=== PATIENT | male | born 1960 | race Caucasian/White ===

== ENCOUNTER 2020-03-05 12:00 | Emergency (ER) | payer BC ==
--- NOTE | 2020-03-05 12:10 | EDM.PDOC ---
ED HPI GENERAL MEDICAL PROBLEM - General Stated Complaint: PAIN IN L/ SHOULDER Time Seen by Provider: 03/05/20 12:05 Source of Information: Reports: Patient History Limitations: Reports: No Limitations - History of Present Illness INITIAL COMMENTS - FREE TEXT/NARRATIVE: HISTORY AND PHYSICAL: History of present illness: Patient is a 59-year-old male who presents to the ED today with concern of left-sided neck/shoulder pain that has been ongoing consistently for 2 to 3 weeks. Patient states that the pain is worse with moving his neck and better with rest. Patient states he does have improvement of his symptoms when he uses a heat pack and massage of the area but was concerned because he has a family history of blood clots and was told that the symptoms could be caused from a blood clot or a heart concern. Patient states that his symptoms have not worsened over the course of 2 weeks and has been constant and has slightly improved with time. Patient denies any trauma or injury. Denies any other symptoms or concerns. Patient denies fever, chills, chest pain, shortness of breath, or cough. Denies headache, neck stiff ness, change in vision, syncope, or near syncope. Denies nausea, vomiting, abdominal pain, diarrhea, constipation, or dysuria. Has not noted any blood in urine or stool. Patient has been eating and drinking appropriately. Review of systems: As per history of present illness and below otherwise all systems reviewed and negative. Past medical history: As per history of present illness and as reviewed below otherwise noncontributory. Surgical history: As per history of present illness and as reviewed below otherwise noncontributory. Social history: See social history for further information Family history: As per history of present illness and as reviewed below otherwise noncontributory. Physical exam: General: Patient is alert, oriented, and in no acute distress. Patient sitting comfortably on exam table. HEENT: Atraumatic, normocephalic, pupils equal and reactive bilaterally, negative for conjunctival pallor or scleral icterus, mucous membranes moist, TMs normal bilaterally, throat clear, neck supple, nontender, trachea midline. No drooling or trismus noted. No meningeal signs. No hot potato voice noted. Lungs: Clear to auscultation, breath sounds equal bilaterally, chest nontender. Heart: S1S2, regular rate and rhythm without overt murmur Abdomen: Soft, nondistended, nontender. Negative for masses or hepatosplenomegaly. Negative for costovertebral tenderness. Pelvis: Stable nontender. Genitourinary: Deferred. Rectal: Deferred. Skin: Intact, warm, dry. No lesions or rashes noted. Extremities: Deformity of the complete spine. No step-offs, crepitus, or point tenderness to palpation of the complete spine. Patient does have pain of the left sided trapezius muscle with palpation of the base of the muscle body as well with ROM of the cervical spine with reproducible pain of this area. Otherwise, atraumatic, negative for cords or calf pain. Neurovascular unremarkable. Neuro: Awake, alert, oriented. Cranial nerves II through XII unremarkable. Cerebellum unremarkable. Motor and sensory unremarkable throughout. Exam nonfocal. Notes: See Dr. Jaime dictation for EKG interpretation Signs and symptoms are prompt return to the ED thoroughly discussed with patient. Discussed importance for follow-up with a primary care provider. Voices understanding and is agreeable to plan of care. Denies any further questions or concerns at this time. Diagnostics: EKG, CBC, CMP, CXR, Trop, Ddimer Therapeutics: None Prescription: Diclofenac, Flexeril Impression: Left sided trapezius strain Plan: 1. Tylenol as needed for back pain. Otherwise, take the prescribed Flexeril and diclofenac as directed. Diclofenac as an anti-inflammatory medication so do not take any additional NSAIDs with this medication, such as naproxen, ibuprofen, or Aleve. Flexeril, this medication may cause drowsiness, so do not take it while driving or needing to be functioning outside of the home. 2. Follow-up with your primary care provider as discussed. Return to the ED as needed and as discussed. Definitive disposition and diagnosis as appropriate pending reevaluation and review of above. Left Shoulder Pain Score (Numeric/FACES): 9 - Related Data Allergies Allergy/AdvReac Type Severity Reaction Status Date / Time No Known Allergies Allergy Verified 03/05/20 12:18 Home Meds: Home Meds Cyclobenzaprine [Flexeril] 10 mg PO TID PRN #9 tab 03/05/20 [Rx] Diclofenac Sodium [Voltaren] 75 mg PO BIDMEALS PRN #15 tab.cr 03/05/20 [Rx] ED ROS GENERAL - Review of Systems Review Of Systems: Comprehensive ROS is negative, except as noted in HPI. ED EXAM, GENERAL - Physical Exam Exam: See Below (see dictation) Course - Vital Signs Last Recorded V/S: Last Vital Signs Temp 98.7 F 03/05/20 12:19 Pulse 86 03/05/20 12:19 Resp 20 03/05/20 12:19 BP 154/99 H 03/05/20 12:19 Pulse Ox 97 03/05/20 12:19 - Orders/Labs/Meds Orders: Active Orders 24 hr Category Date Time Status Cardiac Monitoring [RC] . DIRECTED Care 03/05/20 12:46 Active EKG Documentation Completion [RC] STAT Care 03/05/20 12:31 Active UA RFX JALIL AND CULT IF INDIC [URIN] Stat Lab 03/05/20 12:46 Ordered Labs: Laboratory Tests 03/05/20 03/05/20 03/05/20 Range/Units 13:22 13:22 13:22 WBC 4.12 (4.0-11.0) K/uL RBC 4.61 (4.50-5.90) M/uL Hgb 14.7 (13.0-17.0) g/dL Hct 44.0 (38.0-50.0) % MCV 95.4 (80.0-98.0) fL MCH 31.9 (27.0-32.0) pg MCHC 33.4 (31.0-37.0) g/dL RDW Std Deviation 44.4 (28.0-62.0) fl RDW Coeff of Rohan 13 (11.0-15.0) % Plt Count 153 (150-400) K/uL MPV 9.40 (7.40-12.00) fL Neut % (Auto) 62.4 (48.0-80.0) % Lymph % (Auto) 23.1 (16.0-40.0) % Ellsworth % (Auto) 14.1 (0.0-15.0) % Eos % (Auto) 0.2 (0.0-7.0) % Baso % (Auto) 0.2 (0.0-1.5) % Neut # (Auto) 2.6 (1.4-5.7) K/uL Lymph # (Auto) 1.0 (0.6-2.4) K/uL Ellsworth # (Auto) 0.6 (0.0-0.8) K/uL Eos # (Auto) 0.0 (0.0-0.7) K/uL Baso # (Auto) 0.0 (0.0-0.1) K/uL Nucleated RBC % 0.0 /100WBC Nucleated RBCs # 0 K/uL D-Dimer, Quantitative 0.44 (0.0-0.50) mg/L FEU Sodium 135 L (136-148) mmol/L Potassium 4.3 (3.5-5.1) mmol/L Chloride 100 (98-107) mmol/L Carbon Dioxide 26.2 (21.0-32.0) mmol/L BUN 11 (7.0-18.0) mg/dL Creatinine 1.1 (0.8-1.3) mg/dL Est Cr Clr Drug Dosing 74.09 mL/min Estimated GFR (MDRD) > 60.0 ml/min Glucose 112 H (74-106) mg/dL Calcium 8.8 (8.5-10.1) mg/dL Total Bilirubin 0.4 (0.2-1.0) mg/dL AST 18 (15-37) IU/L ALT 27 (14-63) IU/L Alkaline Phosphatase 86 (46-116) U/L Troponin I < 0.050 (0.000-0.056) ng/mL Total Protein 7.4 (6.4-8.2) g/dL Albumin 3.7 (3.4-5.0) g/dL Globulin 3.7 (2.6-4.0) g/dL Albumin/Globulin Ratio 1.0 (0.9-1.6) Lipase 96 (73-393) U/L Departure - Departure Time of Disposition: 14:44 Disposition: Home, Self-Care 01 Clinical Impression: Strain of left trapezius muscle Qualifiers: Encounter type: initial encounter Qualified Code(s): S46.812A - Strain of other muscles, fascia and tendons at shoulder and upper arm level, left arm, initial encounter - Discharge Information Referrals: PCP,None [Primary Care Provider] - Additional Instructions: The following information is given to patients seen in the emergency department who are being discharged to home. This information is to outline your options for follow-up care. We provide all patients seen in our emergency department with a follow-up referral. The need for follow-up, as well as the timing and circumstances, are variable depending upon the specifics of your emergency department visit. If you don't have a primary care physician on staff, we will provide you with a referral. We always advise you to contact your personal physician following an emergency department visit to inform them of the circumstance of the visit and for follow-up with them and/or the need for any referrals to a consulting specialist. The emergency department will also refer you to a specialist when appropriate. This referral assures that you have the opportunity for follow-up care with a specialist. All of these measure are taken in an effort to provide you with optimal care, which includes your follow-up. Under all circumstances we always encourage you to contact your private physician who remains a resource for coordinating your care. When calling for follow-up care, please make the office aware that this follow-up is from your recent emergency room visit. If for any reason you are refused follow-up, please contact the [facility] Emergency Department at and asked to speak to the emergency department charge nurse. [facility] [address] [place] [address] [place] [address] 1. Tylenol as needed for back pain. Otherwise, take the prescribed Flexeril and diclofenac as directed. Diclofenac as an anti-inflammatory medication so do not take any additional NSAIDs with this medication, such as naproxen, ibuprofen, or Aleve. Flexeril, this medication may cause drowsiness, so do not take it while driving or needing to be functioning outside of the home. 2. Follow-up with your primary care provider as discussed. Return to the ED as needed and as discussed. Sepsis Event Note (ED) - Focused Exam Vital Signs: Vital Signs Temp Pulse Resp BP Pulse Ox 03/05/20 12:19 98.7 F 86 20 154/99 H 97 - My Orders Last 24 Hours: My Active Orders 03/05/20 12:31 EKG Documentation Completion [RC] STAT 03/05/20 12:46 Cardiac Monitoring [RC] . DIRECTED UA RFX JALIL AND CULT IF INDIC [URIN] Stat - Assessment/Plan Last 24 Hours: My Active Orders 03/05/20 12:31 EKG Documentation Completion [RC] STAT 03/05/20 12:46 Cardiac Monitoring [RC] . DIRECTED UA RFX JALIL AND CULT IF INDIC [URIN] Stat
--- NOTE | 2020-03-05 13:30 | CR ---
INDICATION: 2 week history of left scapular and chest pain. TECHNIQUE: AP upright portable chest. FINDINGS: Clear lungs. Normal heart size and pulmonary vascularity. Thoracic curvature may be more positional than real. The visualize left scapula and shoulder are grossly normal. IMPRESSION: Negative portable chest. Dictated by Nagi Watters MD @ Mar 05 2020 1:28PM Signed by Dr. Nagi Watters @ Mar 05 2020 1:29PM
[2020-03-05 13:50] LABS: BLOOD UREA NITROGEN,BUN 11 mg/dL (7.0-18.0); CARBON DIOXIDE,CO2 26.2 mmol/L (21.0-32.0); CHLORIDE,CL 100 mmol/L (98-107); GLUCOSE RANDOM 112 mg/dL (74-106); LIPASE 96 U/L (73-393); POTASSIUM,K 4.3 mmol/L (3.5-5.1); SODIUM,NA 135 mmol/L (136-148)
--- NOTE | 2020-03-05 14:46 | PCM.PRNOTE ---
- Free Text/Narrative Note: Time: 6 Rate: 91 Rhythm: sinus Intervals: normal ST-T wave: no acute changes Overall: normal sinus rhythm
[2020-03-05 19:25] VITALS: BP 146/108; PULSE 90
== END 2020-03-05 15:00 | disposition home or self-care (01) ==
LOC: MW.ED 12:00
DX: S46.812A Strain of other muscles, fascia and tendons at shoulder and upper arm level, left arm, initial encounter (principal); X58.XXXA Exposure to other specified factors, initial encounter
CPT/HCPCS: 36415; 71045; 71045-26; 80053; 81003; 83690; 84484; 85025; 85379; 93005; 99284-25